=== PATIENT | male | born 1945 | race Caucasian/White ===

== ENCOUNTER 2024-06-15 09:20 | Outpatient (CLI) | payer MEDICARE, BC ==
[~2024-06-15 09:20] MED LIST: ASPI-611 PO; LEVO50TA8 PO; METO-539 PO; PRAV20TA4 PO
--- NOTE | 2024-06-18 13:46 | CONSULTATION ---
DATE OF CONSULTATION: 06/15/2024 DICTATING PHYSICIAN: Babs Ibarra M.S., [facility]-ATTRACTION WORKER MODIFIED BARIUM SWALLOW STUDY REPORT REFERRING PHYSICIAN: Marlon Escoto MD HISTORY OF PRESENT ILLNESS: The patient is a 79-year-old male and consents to this evaluation. History was obtained from the patient and medical records. The patient reports symptoms of dysphagia including a lot of hacking throughout the day with a productive cough and throat clearing. He reports that this can occur anytime throughout the day and that this has been occurring for the last 6 months that has gotten worse with time. He notes that his teeth have been breaking off, so he has to be slow with his mastication and he has an appointment with the dentist for this. CURRENT DIET: In terms of caffeine, the patient has 2 cups of coffee in the morning and a cup of coffee later in the day. He occasionally has a Jose tea or Diet Coke as well. He does not utilize tobacco products or drinks alcohol. He has not been having chocolate lately as he has been having some difficulties with it and thinks it may be an allergic reaction. In terms of dairy products, he has quit having them in the last couple of weeks and just has mozzarella cheese on his salad. A typical breakfast is at 11:00 a.m. and may be broccoli with scrambled eggs, sausage, and strawberries. He occasionally snacks on potato chips during the day and then his next meal is at 4:00 to 5:00 p.m., which is a salad. He does not have any food after that and goes to bed at 11:00 p.m.. PARAMETERS: The patient is seated in a lateral 90-degree view and administered the usual protocol of thin and nectar thick liquids, puree and solid consistencies as well as self-regulated boluses of thin liquids from a cup. RESULTS: In the oral stage of the swallow, it appears oral transit is characterized by mild reduced lingual palatal stripping secondary to reduced tongue-base retraction. There is a mild oral residue following the initial swallow of the boluses. In the pharyngeal stage of the swallow, swallow initiation is delayed for thin liquid boluses at the level of the piriform. Tongue-base retraction is mild to moderately reduced. Anterior movement of the posterior pharyngeal wall is observed. Elevation of the hyothyroid complex is accomplished with mildly reduced epiglottic inversion. There is a moderate pharyngeal residue at the level of the vallecula and PES opening, especially with thin liquid boluses. PES opening appears to be mild to moderately reduced. In terms of airway safety, the patient does not demonstrate any penetration or aspiration at any point. ANTERIOR, POSTERIOR VIEW: In the AP plane, the bolus split symmetrically between the piriform sinuses and there was proximal movement of the boluses noted to the level of the clavicle. IMPRESSION: The patient demonstrates with what appears to be a moderate pharyngoesophageal stage swallowing disorder characterized by mild to moderately reduced tongue-base retraction, delayed swallow initiation of thin liquids to the level of the piriforms, moderate pharyngeal residue, and proximal movement of the boluses to the level of the clavicle. DIAGNOSES: R13.14 dysphagia, pharyngoesophageal phase; K21.9 gastroesophageal reflux disease. PATIENT EDUCATION: Immediately following modified barium swallow study, the patient was able to view the results. The patient was able to see how the current status to the oral motor and swallowing mechanism decreases his ability to swallow normally. He was educated on a recommendation for speech therapy to strengthen the muscles involved in swallowing and agreed to participate at this time. He has an appointment scheduled for 06/19/2024. He was also educated on dietary modifications for laryngopharyngeal reflux disease. RECOMMENDATIONS: * It is recommended the patient receive following therapy one time weekly for 12 weeks to improve the strength and range of motion of a more oral motor and swallowing mechanism to ensure airway safety protection and prevent aspiration. * It is recommended that the patient follow the aforementioned dietary modifications for laryngopharyngeal reflux disease. LONG-TERM GOALS: The patient will maintain adequate hydration/nutrition with optimum safety and efficiency of swallow function on p.o. intake with overt signs and symptoms of aspiration decreased from several times daily to twice weekly. PROGNOSIS: Prognosis for the patient is good based on motivation for therapy and willingness to learn. FUNCTIONAL ORAL INTAKE: The FOIS was administered to establish and document a change in the functional eating activities of this patient over time. This is a 7-point scale with 1 indicating no oral intake and totally tube dependent and 7 indicating total oral intake with no restrictions. This patient received a 6 which indicates he has a total oral diet with multiple consistencies without special preparation but with specific food limitations and precautions. G-CODE: [id number]. Thank you very much for asking me to participate in the care of this kind patient. Should you have any questions regarding this evaluation or recommendations, please do not hesitate to contact me at [phone]. During this examination, 3.13 minutes of fluoroscopy time and 11.64 CAK mGy were utilized. Babs Ibarra M.S., [facility]-[employer] WORKER TID: [id number] RECEIPT: [id number] [facility]
== END 2024-06-15 23:59 | disposition home or self-care (01) ==
LOC: RAD 09:20
PROVIDERS: ATTEND Otolaryngology
DX: R13.10 Dysphagia, unspecified (principal); K21.9 Gastro-esophageal reflux disease without esophagitis; J38.7 Other diseases of larynx; J39.2 Other diseases of pharynx
CPT/HCPCS: 74230